=== PATIENT | male | born 1995 | race Caucasian/White ===

== ENCOUNTER 2017-05-02 19:11 | Emergency (ER) | payer OTHER, SELFPAY ==
[2017-05-02] MEDS ORDERED: MORPHINE SULFATE 4 MG INJ ONE (19:17)
[2017-05-02] MEDS ORDERED: MORPHINE SULFATE 10 MG/ML IV ONE ×2 (19:21→20:13)
[2017-05-02] MEDS ORDERED: TETRACAINE 0.5% STERI-UNIT SOL OP ONE (19:21)
[2017-05-02] MEDS ORDERED: Sodium Chloride 0.9% 1000 ML 2,000 ML ONE (19:22)
[2017-05-02] MEDS ORDERED: Zofran 4 MG/2 ML VIAL IV ONE (19:23)
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
[2017-05-02] MEDS ORDERED: Sodium Chloride 0.9% 1000 ML 1,000 ML IV STA ×2 (19:35→19:38)
[2017-05-02] MEDS ORDERED: TETRACAINE 0.5% STERI-UNIT SOL OP STA (19:37)
[2017-05-02] MEDS ORDERED: Sodium Chloride 0.9% 1000 ML 1,000 ML ONE (19:39)
[2017-05-02 19:48] LABS: BASOPHIL % 0.2 % (0.0-0.4); Eosinophil % 8.4 % (0.00-5.0); Granulocytes % 43.6 % (36.0-66.0); Lymphocytes % 33.3 % (24.0-44.0); Mean Cell Volume 90.4 fl (78-100); Mean Corpuscular Hemoglobin 31.9 pg (26-32); Monocytes % 14.5 % (0.0-12.0); Platelet Count 239 K/mm3 (150-450); Red Blood Count 4.98 M/mm3 (4.1-5.6); Red Cell Distribution Width 12.9 % (11.5-14.0); White Blood Count 12.6 K/mm3 (4.0-10.5)
[2017-05-02] MEDS ORDERED: XYLOCAINE 2% Uro-Jet ONE (19:50)
[2017-05-02] MEDS ORDERED: XYLOCAINE 2% Uro-Jet TOP ONE (20:02)
[2017-05-02 20:03] LABS: ANION GAP 17.3 MEQ/L (5-15); BLOOD UREA NITROGEN 13 mg/dL (9-20); CHLORIDE 106 mEq/L (98-107); Carbon Dioxide 22.6 mEq/L (21-32); Glucose 129 MG/DL (70-110); Potassium 3.9 mEq/L (3.5-5.1); SODIUM 142 mEq/L (136-145)
[2017-05-02] MEDS ORDERED: MORPHINE SULFATE 10 MG/ML IM ONE (20:12)
[2017-05-02] MEDS ORDERED: MORPHINE SULFATE 10 MG/ML ONE (20:18)
[2017-05-02 20:29] LABS: ADD URINE CULTURE? NO (NO); Bilirubin NEGATIVE (NEGATIVE); Blood NEGATIVE Ery/ul (0-5); COMPLETE URINE MICROSCOPIC? NO; Collection Type CCMS; Glucose NEGATIVE (NEGATIVE); Leukocyte Esterase NEGATIVE (NEGATIVE)
[2017-05-02 21:06] VITALS: BP 138/77; PULSE 92; O2SAT 97
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
== END 2017-05-02 21:30 | disposition short-term general hospital (02) ==
LOC: ED 19:11
DX: T20.20XA Burn of second degree of head, face, and neck, unspecified site, initial encounter (principal); T20.211A Burn of second degree of right ear [any part, except ear drum], initial encounter; T20.27XA Burn of second degree of neck, initial encounter; T22.20XA Burn of second degree of shoulder and upper limb, except wrist and hand, unspecified site, initial encounter; T23.201A Burn of second degree of right hand, unspecified site, initial encounter; W40.1XXA Explosion of explosive gases, initial encounter
CPT/HCPCS: 36000; 36415; 51702; 66999; 71020; 80048; 80307; 81002; 85025; 96360; 96361; 96374; 99285; J2270; J2405

== ENCOUNTER 2017-05-19 10:46 | Emergency (ER) | payer OTHER ==
[2017-05-19] MEDS ORDERED: TETRACAINE 0.5% STERI-UNIT SOL OP ONE (11:11)
[2017-05-19] MEDS ORDERED: Eye-Stream Solution ONE (11:11)
[2017-05-19] MEDS ORDERED: Fluor-I-Strip/Ful-Flo OP ONE ×2 (11:11→13:51)
[2017-05-19] MEDS ORDERED: TETRACAINE 0.5% STERI-UNIT SOL OP STA (11:13)
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
[2017-05-19 12:18] VITALS: O2SAT 98
[2017-05-19] MEDS ORDERED: Erythromycin 3.5 GM OPHTH. OP ONE (13:42)
[2017-05-19] MEDS ORDERED: Erythromycin 1 GM ONE (13:46)
[2017-05-19] MEDS ORDERED: Eye-Stream Solution OP ONE (13:50)
[2017-05-19 14:14] VITALS: BP 130/71; PULSE 96
--- NOTE | 2017-05-19 20:30 | XRAY ---
Indication: Right eye pain and light sensitivity. Sinus problems. Multiple contiguous axial images obtained through the orbits prior to and following 80 cc Isovue 370 contrast. Sagittal and coronal reformatted images obtained. Comparison: None. Orbits including roof, gregorio, and floors are intact. No acute fracture, suspicious bone lesions, or radiopaque foreign body. There is moderate mucosal thickening of both ethmoid sinuses with lesser degree in both sphenoid and maxillary sinuses without fluid leveling. Visualized noncontrasted soft tissues including base of the brain unremarkable. Impression: CT orbits with and without contrast demonstrates pansinusitis. Comment: Preliminary interpretation was made by [facility]. No discrepancy. CTDI 44.60
== END 2017-05-19 14:13 | disposition home or self-care (01) ==
LOC: ED 10:46
DX: S05.01XA Injury of conjunctiva and corneal abrasion without foreign body, right eye, initial encounter (principal)
CPT/HCPCS: 70482; 99284; A9270-GY